=== PATIENT | female | born 1965 | race Caucasian/White ===

== ENCOUNTER 2022-09-24 16:51 | Emergency (ER) | payer BC ==
[2022-09-24] MEDS ORDERED: Lidocaine 2% 5 ML SDV INJECT ONE (17:05)
[2022-09-24] MEDS ORDERED: Diphtheria,Pertussis(Acell),Tetanus Vaccine 0.5 ML Syringe IM ONE (17:06)
[2022-09-24 17:11] VITALS: BP 143/86; PULSE 93
[2022-09-24] MEDS ORDERED: Bupivacaine 0.5% 10 ML SDV INJECT ONE (17:12)
[2022-09-24] MEDS ORDERED: Cephalexin 500 MG Cap PO ONE (18:26)
== END 2022-09-24 18:50 | disposition home or self-care (01) ==
LOC: CC.ED 16:51
DX: S61.210A Laceration without foreign body of right index finger without damage to nail, initial encounter (principal); Z23 Encounter for immunization; W26.8XXA Contact with other sharp object(s), not elsewhere classified, initial encounter; Y93.E8 Activity, other personal hygiene
CPT/HCPCS: 12002; 90471; 90715; 99282-25; 99283; A9270-GY; J3490